=== PATIENT | female | born 1950 | race African-American/Black ===

== ENCOUNTER → 2019-04-05 | Day surgery (SDC) | payer MEDICARE ==
[2019-03-31 14:16] LABS: BASOPHILS # (AUTO) 0.1 (0.0-0.1); BASOPHILS % 0.7 % (0.0-1.0); EOSINOPHILS # (AUTO) 0.2 (0.0-0.4); EOSINOPHILS % 1.8 % (0.0-6.0); HEMATOCRIT 38.5 % (34.2-44.1); HEMOGLOBIN 12.3 g/dL (12.0-16.0); LYMPHOCYTES # (AUTO) 4.3 (1.0-3.2); LYMPHOCYTES % 41.4 % (18.0-39.1); MEAN CORPUSCULAR HEMOGLOBIN 26.5 pg (28-32); MEAN CORPUSCULAR HGB CONC 31.9 g/dL (31-35); MEAN CORPUSCULAR VOLUME 82.8 fL (81-99); MONOCYTES # (AUTO) 0.9 (0.2-0.8); MONOCYTES % 9.1 % (4.4-11.3); NEUTROPHILS # (AUTO) 4.8 (2.1-6.9); NEUTROPHILS % 46.8 % (38.7-80.0); PLATELET COUNT 262 x10e3/uL (140-360); RED BLOOD COUNT 4.65 x10e6/uL (3.6-5.1)
[~2019-04-05] MED LIST: ASPIR 8181 MG PO; GLUCAGON FOR INJ 1 MG VIAL ONE; IRON PO; LEVOTHYROXINE50 MCG PO; LISINOPRIL10 MG PO; METOCLOPRAMIDE HCL 10 MG/2ML VIAL ONE; METOPROLOL SUCC50 MG PO; ONDANSETRON HCL INJ 2MG/ML 2ML 2 MG/ML VIAL ONE; PRENATAL TABLE1 EAC1 PO; PROPOFOL IV EMULSION 10 MG/ML 50 ML VIAL ONE; SIMVASTATIN40 MG PO
--- OUTSIDE RECORDS SUMMARY | 2019-04-05 06:19 | XMS REPORT | Clinical Summary ---
Author Author [employer] [facility] [employer] Address Unknown Phone Unavailable Care Team Providers Care Alumni Relations Manager Name Role Phone Asked, No Pcp PCP Unavailable Allergies Comments Active Allergy Reactions Severity Noted Date Niacin Itching 06/26/2017 Penicillin G Itching 06/26/2017 Sulfa (Sulfonamide Itching 06/26/2017 Antibiotics) Medications End Date Status Medication Sig Dispensed Refills Start Date Active cyclobenzaprine Take 1 tablet 20 tablet 0 (FLEXERIL) 10 mg tablet (10 mg total) 7 by mouth 2 (two) times a day as needed for muscle spasms for up to 10 doses. Active ibuprofen (ADVIL,MOTRIN) Take 1 tablet 30 tablet 0 600 MG tablet (600 mg 7 total) by mouth every 8 (eight) hours as needed for moderate pain. 05/26/2018 acetaminophen-codeine Take 1-2 15 tablet 0 (TYLENOL WITH CODEINE #3) tablets by 8 300-30 mg per tablet mouth every 6 (six) hours as needed for moderate pain for up to 5 days. Active Problems Not on file Encounters Care Team Description Date Type Specialty Bladimir Govea MD Acute pain of left knee (Primary Dx) 05/21/2018 Emergency Emergency Medicine after 04/04/2018 Social History Date Tobacco Use Types Packs/Day Years Used Never Smoker Smokeless Tobacco: Never Used Drinks/Week oz/Week Comments Alcohol Use No Sex Assigned at Date Recorded Not on file Industry Job Start Date Occupation Not on file Not on file Not on file Travel End Travel History Travel Start No recent travel history available. Last Filed Vital Signs Reading Time Taken Comments Vital Sign 120/57 05/21/2018 11:00 PM CDT Blood Pressure 83 05/21/2018 11:00 PM CDT Pulse 36.8 C (98.3 F) 05/21/2018 8:38 PM CDT Temperature 18 05/21/2018 11:00 PM CDT Respiratory Rate 99% 05/21/2018 11:00 PM CDT Oxygen Saturation - - Inhaled Oxygen Concentration - - Weight 154.9 cm (5' 1") 05/21/2018 8:38 PM CDT Height - - Body Mass Index Plan of Treatment Health Maintenance Due Date Last Done Comments BREAST CANCER SCREENING 1999 COLONOSCOPY SCREENING 1999 SHINGLES VACCINES (#1) 1999 65+ PNEUMOCOCCAL VACCINE 2014 (1 of 2 - PCV13) INFLUENZA VACCINE 03/17/2019 Procedures Comments Procedure Name Priority Date/Time Associated Diagnosis XR KNEE 1 OR 2 VW LEFT STAT 05/21/2018 9:57 PM CDT after 04/04/2018 Results * XR Knee 1 Or 2 Vw Left (05/21/2018 9:57 PM CDT) Specimen Narrative Performed At EXAMINATION:XR KNEE 1 OR 2 VW LEFT RADIANT CLINICAL HISTORY:L knee twisted eval frx COMPARISON:None. IMPRESSION: No evidence of acute left knee fracture, dislocation, or significant joint effusion. Bone mineralization is normal. Soft tissues are unremarkable. [facility]-[id number] Procedure Note Hm Interface, Radiology Results Incoming - 05/21/2018 10:12 PM CDT EXAMINATION: XR KNEE 1 OR 2 VW LEFT CLINICAL HISTORY: L knee twisted eval frx COMPARISON: None. IMPRESSION: No evidence of acute left knee fracture, dislocation, or significant joint effusion. Bone mineralization is normal. Soft tissues are unremarkable. [facility]-[id number] Performing Organization Address City/State/Zipcode Phone Number [facility] [address] [place] [address] after 04/04/2018 Insurance Type Payer Benefit Subscriber ID Effective Phone Address Plan / Dates Group [facility] [employer] xxxxxxxx [id number] RAISA martin Advance Directives For more information, please contact: [phone] Patient Head Teacher Explanation Type Date Recorded Advance Directives, 06/26/2017 12:31 PM Living Will and Medical Power of Driver License Agent Advance Directives, 05/21/2018 11:04 PM Living Will and Medical Power of Driver License Agent
--- NOTE | 2019-04-05 07:15 | NUR ---
SPIRITUAL CARE - Pre-Surgery Assessment: Pt in bed. Pt identified as [employer]. Pt reported supportive attention from family and friends. Intervention: I provided pastoral presence, hospitality, sympathetic listening, and prayer. I acquainted pt with availability of body sander while hospitalized. Outcome: Pt expressed appreciation for visit. No need for follow up indicated at this time. [facility] Spiritual Care Department O: [phone] Pager: [phone] ([phone] number calling from)
[2019-04-05 10:10] VITALS: BP 135/93
== END | disposition home or self-care (01) ==
LOC: ENDO 06:17
PROVIDERS: ATTEND Internal Medicine Gastroenterology
DX: Z12.11 Encounter for screening for malignant neoplasm of colon (principal); Z86.010 Personal history of colon polyps; Q27.33 Arteriovenous malformation of digestive system vessel; K57.30 Diverticulosis of large intestine without perforation or abscess without bleeding; K64.8 Other hemorrhoids; K56.609 Unspecified intestinal obstruction, unspecified as to partial versus complete obstruction; E03.9 Hypothyroidism, unspecified; I10 Essential (primary) hypertension; R01.1 Cardiac murmur, unspecified; R00.1 Bradycardia, unspecified; Z88.0 Allergy status to penicillin; Z88.2 Allergy status to sulfonamides; Z88.8 Allergy status to other drugs, medicaments and biological substances; Z01.810 Encounter for preprocedural cardiovascular examination; Z01.812 Encounter for preprocedural laboratory examination; Z79.82 Long term (current) use of aspirin; Z68.41 Body mass index [BMI] 40.0-44.9, adult
CPT/HCPCS: 36415; 85025; 93005; G0121; J1610; J2405; J2704; J2765; 45378